=== PATIENT | female | born 1955 | race Caucasian/White ===

== ENCOUNTER → 2017-07-20 | Outpatient (CLI) | payer OTHER | LOC: FIMAGING 10:24 | PROVIDERS: ATTEND Family Medicine | DX: Z12.31 Encounter for screening mammogram for malignant neoplasm of breast (principal) | CPT/HCPCS: G0202 ==

== ENCOUNTER → 2018-03-19 | Outpatient (CLI) | payer OTHER ==
[~2018-03-19] MED LIST: IOPAMIDOL (ISOVUE-300) 100 ML BTL ONE
== END ==
LOC: FIMAGING 14:01
PROVIDERS: ATTEND Family Medicine
DX: K57.30 Diverticulosis of large intestine without perforation or abscess without bleeding (principal); M48.061 Spinal stenosis, lumbar region without neurogenic claudication; M46.96 Unspecified inflammatory spondylopathy, lumbar region
CPT/HCPCS: 74177; Q9967

== ENCOUNTER 2018-03-30 06:59 | Inpatient (IN) | payer OTHER ==
--- NOTE | 2018-03-30 07:22 | EDPHY ---
H & P Stated Complaint: abd pain Time Seen by Provider: 03/30/18 07:14 HPI/ROS: Chief Complaint: Abdominal pain, nausea HPI: 62-year-old woman has been having episodes of severe abdominal pain for the last 4 months. Pain got so severe last night that she would come to the emergency department this morning. Some nausea but no vomiting. Pain is in the left lower quadrant. 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 Has also had frequent episodes of sigmoid diverticulitis. She has been seeing her primary care physician for this and had a CT scan a week ago which was unremarkable. She is not having severe symptoms at that time. She has not been taking any medications for this. There are no aggravating or alleviating factors. She also has a history of neurogenic bladder and self caths. Is not having UTI symptoms. No fevers or chills. No chest pain or shortness of breath. Patient did have some firm stool yesterday. Has intermittent loose and firm stools on a regular basis. ROS: 10 point Review of Systems is negative except as noted in the HPI. PMH: Partial colectomy, , diverticulitis, neurogenic bladder Social History: No smoking, no alcohol, no recreational drug use Family History: non-contributory Physical Exam: Gen: Awake, Alert, No Distress HEENT: Nose: no rhinorrhea Eyes: PERRLA, EOMI Mouth: Moist mucosa Neck: Supple, no JVD Chest: nontender, lungs clear to auscultation Heart: S1, S2 normal, no murmur Abd: Soft, patient has significant tenderness in the left lower quadrant with voluntary guarding Back: no CVA tenderness, no midline tenderness Ext: no edema, non-tender Skin: no rash Neuro: CN II-XII intact, Sensation grossly intact, Strength 5/5 in bilateral upper and lower extremities - Personal History Current Tetanus/Diphtheria Vaccine: Yes Current Tetanus Diphtheria and Acellular Pertussis (TDAP): Yes - Medical/Surgical History Hx Asthma: No Hx Chronic Respiratory Disease: No Hx Diabetes: No Hx Cardiac Disease: No Hx Renal Disease: No Hx Cirrhosis: No Hx Alcoholism: Yes Hx HIV/AIDS: No Hx Splenectomy or Spleen Trauma: No Other PMH: diverticulitis/colectomy/neurogenic bladder/hysterectomies, chronic epichondylitis right arm, sleep difficulties, restless leg syndrome, right rib, hx of electro stim implanted then extruded from skin, TMJ, plantar plate dysfunction right foot, - Social History Smoking Status: Current some day smoker Constitutional: Initial Vital Signs Temperature (C) 36.6 C 03/30/18 07:06 Heart Rate 73 03/30/18 07:06 Respiratory Rate 16 03/30/18 07:06 Blood Pressure 104/73 03/30/18 07:06 O2 Sat (%) 99 03/30/18 07:06 O2 Delivery Mode Nasal Cannula O2 (L/minute) 2 Allergies/Adverse Reactions: Metronidazole HCl [From Flagyl] Allergy (Mild, Verified 03/30/18 07:03) Hives contrast Allergy (Uncoded 03/30/18 07:03) Rash Home Medications: Medication Instructions Recorded Diazepam [Valium 5 MG (*)] 5 mg PO HS PRN 11/07/14 Herbals/Supplements -Info Only 1 ea PO DAILY 11/07/14 Multivitamins [Multivitamin (*)] 1 each PO DAILY 11/07/14 [place]-3 Fatty Acids [Fish Oil 1000 1,000 mg PO DAILY 11/07/14 mg (*)] Pentosan Polysulfate Sodium 100 mg PO DAILY 11/07/14 [ELMIRON] oxyCODONE IR [Oxycodone Ir (*)] 5 mg PO DAILY PRN 11/07/14 Elixir 03/30/18 Medical Decision Making - Diagnostics Imaging Results: Imaging Impressions Abdomen CT 03/30/18 07:26 Impression: Worsening diverticulitis. The patient is at risk for colonic obstruction. Results called and discussed with Sai Arias MD, at 03/30/2018 10:15 General information for patients regarding this examination can be found at [email or web address]. If you have questions or comments about this report, please contact me at [phone] (hospital) or [phone] (cell). ED Course/Re-evaluation: Patient is improved after medications. Does not have a significant white count. Given the recommendations of the prior CT scan I am going to repeat a CT scan with oral contrast today. CT scan result noted. Patient has never diverticulitis with intramural sigmoid abscesses luminal narrowing with proximal colon distension with risk of obstruction per Dr. Dunlap. Case discussed with Laz Morales, hospitalist. Will admit to Dr. Chaudhary. I have paged Dr. Kovacs for surgical consultation. Antibiotics have been ordered. Patient is allergic to metronidazole. I have ordered IV Levaquin. Case discussed with Dr. Kovacs, he will consult the patient on the floor. - Data Points Laboratory Results: Laboratory Results 03/30/18 07:20 03/30/18 07:20 03/30/18 03/30/18 03/30/18 07:35 07:20 07:20 WBC 11.43 10^3/uL H 10^3/uL (3.80-9.50) RBC 3.83 10^6/uL L 10^6/uL (4.18-5.33) Hgb 12.7 g/dL g/dL (12.6-16.3) Hct 35.6 % L % (38.0-47.0) MCV 93.0 fL fL (81.5-99.8) MCH 33.2 pg pg (27.9-34.1) MCHC 35.7 g/dL g/dL (32.4-36.7) RDW 13.2 % % (11.5-15.2) Plt Count 283 10^3/uL 10^3/uL (150-400) MPV 9.2 fL fL (8.7-11.7) Neut % (Auto) 70.3 % % (39.3-74.2) Lymph % (Auto) 19.9 % % (15.0-45.0) Johnson % (Auto) 8.5 % % (4.5-13.0) Eos % (Auto) 0.8 % % (0.6-7.6) Baso % (Auto) 0.2 % L % (0.3-1.7) Nucleat RBC Rel Count 0.0 % % (0.0-0.2) Absolute Neuts (auto) 8.04 10^3/uL H 10^3/uL (1.70-6.50) Absolute Lymphs (auto) 2.28 10^3/uL 10^3/uL (1.00-3.00) Absolute Monos (auto) 0.97 10^3/uL H 10^3/uL (0.30-0.80) Absolute Eos (auto) 0.09 10^3/uL 10^3/uL (0.03-0.40) Absolute Basos (auto) 0.02 10^3/uL 10^3/uL (0.02-0.10) Absolute Nucleated RBC 0.00 10^3/uL 10^3/uL (0-0.01) Immature Gran % 0.3 % % (0.0-1.1) Immature Gran # 0.03 10^3/uL 10^3/uL (0.00-0.10) Sodium 135 mEq/L mEq/L (135-145) Potassium 3.8 mEq/L mEq/L (3.5-5.2) Chloride 103 mEq/L mEq/L (97-110) Carbon Dioxide 23 mEq/l mEq/l (22-31) Anion Gap 9 mEq/L mEq/L (8-16) BUN 7 mg/dL mg/dL (7-23) Creatinine 0.5 mg/dL L mg/dL (0.6-1.0) Estimated GFR > 60 Glucose 113 mg/dL H mg/dL (70-100) Calcium 8.7 mg/dL mg/dL (8.5-10.4) Urine Color YELLOW Urine Appearance CLEAR Urine pH 7.0 (5.0-7.5) Ur Specific [place] 1.014 (1.002-1.030) Urine Protein NEGATIVE (NEGATIVE) Urine Ketones NEGATIVE (NEGATIVE) Urine Blood NEGATIVE (NEGATIVE) Urine Nitrate NEGATIVE (NEGATIVE) Urine Bilirubin NEGATIVE (NEGATIVE) Urine Urobilinogen NEGATIVE EU EU (0.2-1.0) Ur Leukocyte Esterase NEGATIVE (NEGATIVE) Urine Glucose NEGATIVE (NEGATIVE) Medications Given: Discontinued Medications Diatrizoate Meglum/Diatrizoate Sod (Gastroview 66-10 Soln) 30 ml PO EDNOW ONE Stop: 03/30/18 07:27 Last Admin: 03/30/18 08:01 Dose: Not Given Diphenhydramine HCl (Benadryl Injection) 50 mg IVP EDNOW ONE Stop: 03/30/18 07:28 Last Admin: 03/30/18 07:34 Dose: 50 mg Diphenhydramine HCl (Benadryl Injection) 25 mg IVP EDNOW ONE Stop: 03/30/18 09:16 Last Admin: 03/30/18 09:19 Dose: 25 mg Hydromorphone HCl (Dilaudid) 0.5 mg IVP EDNOW ONE Stop: 03/30/18 07:25 Last Admin: 03/30/18 07:34 Dose: 0.5 mg Sodium Chloride (Ns) 1,000 mls @ 0 mls/hr IV ONCE ONE; Wide Open PRN Reason: Protocol Stop: 03/30/18 07:25 Last Admin: 03/30/18 07:33 Dose: 1,000 mls Methylprednisolone Sodium Succinate (Solu-Medrol) 125 mg IVP EDNOW ONE Stop: 03/30/18 07:28 Last Admin: 03/30/18 07:34 Dose: 125 mg Ondansetron HCl (Zofran) 4 mg IVP EDNOW ONE Stop: 03/30/18 07:25 Last Admin: 03/30/18 07:34 Dose: 4 mg Departure - Departure Disposition: [facility] Acute Clinical Impression: Diverticulitis Condition: Fair
[2018-03-30] MEDS ORDERED: NS 1,000 ML IV ONE (07:24)
[2018-03-30] MEDS ORDERED: HYDROmorphONE/DILAUDID 1 MG/ML INJ IVP ONE (07:24)
[2018-03-30] MEDS ORDERED: ONDANSETRON 4 MG/2 ML VIAL IVP ONE (07:24)
[2018-03-30] MEDS ORDERED: GASTROVIEW 30 ML UNIT PO ONE (07:26)
[2018-03-30] MEDS ORDERED: methylPREDNISolone SOD SUCC 125 MG/2 ML VIAL IVP ONE (07:27)
[2018-03-30] MEDS ORDERED: HYDROmorphONE/DILAUDID 2 MG/ML INJ ONE ×2 (07:30→10:55)
[2018-03-30 07:33] LABS: PLATELET COUNT 283 10^3/uL (150-400)
[2018-03-30] MEDS ORDERED: IOPAMIDOL (ISOVUE-300) 100 ML BTL ONE (09:08)
[2018-03-30] MEDS ORDERED: HYDROmorphONE/DILAUDID 2 MG/ML INJ IVP ONE (10:57)
--- NOTE | 2018-03-30 11:18 | ASMTCMCOM ---
CM Note CM Note Notes: Pt presented to the Emergency Department with several episodes of severe abdominal pain and nausea. History includes a partial colectomy secondary to a diverticular mass in 1999 and sigmoid diverticulitis. Pt to be admitted for further evaluation and treatment. Pt is and lives with her in [place]. Discharge needs remain unclear at this time. CM will continue to follow. Current Discharge Plan: To be determined Date Signed: 03/30/2018 11:16 AM Electronically Signed By:Nakia Murillo RN
[2018-03-30] MEDS ORDERED: D5W 1/2 NS W/ 20 KCl/L 1,000 ML IV SCH (12:45)
[2018-03-30] MEDS ORDERED: DIAZEPAM 5 MG TAB PO PRN (12:46)
[2018-03-30] MEDS ORDERED: ERTAPENEM 1 GM VIAL IV SCH (13:00)
--- NOTE | 2018-03-30 13:09 | GCON ---
[f rep st] CONSULTATION DATE OF CONSULTATION: 03/30/2018 REASON FOR EVALUATION: Diverticulitis. REQUESTING PHYSICIAN: Dr. Sai Arias HISTORY OF PRESENT ILLNESS: 62-year-old female, well known to me with a longstanding history of recurrent diverticulitis. Significantly, she underwent a laparoscopic partial right colectomy at [facility] in 1999 for a diverticular mass. She has had recurring episodes of acute diverticulitis over the last decade and has been managed with antibiotics in the outpatient setting. She has been treated for symptoms of irritable bowel throughout the years as well. A colonoscopy earlier in the year was reportedly unremarkable for the patient. She presents to the emergency room today with a 4 month history of persistent and progressive waxing and waning left lower quadrant pain. This was managed with 1 round of antibiotics with some improvement. The rest was attempted to be managed with diet control. The patient admits to approximately 4 bowel movements per day. These are often soft. She denies current nausea or vomiting. She denies fevers or chills. She self catheterizes intermittently. She has had a history of recurrent urinary infections. She denies a history of pneumaturia. PAST MEDICAL HISTORY: Diverticulitis. PAST SURGICAL HISTORY: Laparoscopic partial right hemicolectomy, transvaginal hysterectomy, laparoscopic sacrocolpopexy, hemorrhoidectomy, left leg venous ablation. MEDICATIONS: Elmiron, oxycodone p.r.n., Valium p.r.n., p.r.n. ALLERGIES: Flagyl (rash). SOCIAL HISTORY: No significant tobacco. She drinks approximately 1 beverage per day. FAMILY HISTORY: Notable for cardiovascular disease and diabetes. REVIEW OF SYSTEMS: Notable for chronic GI complaints as well as generalized muscle and joint aches and pains. Otherwise, negative 12 point review. PHYSICAL EXAMINATION: VITAL SIGNS: Temperature 36.6, blood pressure 100/60, pulse 66, respirations 16. GENERAL: The patient is alert, appropriate, mildly uncomfortable, moving easily in bed. HEENT: Anicteric. LYMPH NODES: No cervical or supraclavicular lymphadenopathy. HEART: Regular without murmurs. LUNGS: Clear bilaterally. ABDOMEN: Soft, mildly distended. Mild left lower quadrant tenderness without rebound or guarding. Notable firmness present without appreciable mass. Well-healed laparoscopic incisions without hernias. EXTREMITIES: Without edema. SKIN: Without rashes. NEUROLOGIC: Alert and appropriate. LABORATORY DATA: White count 11, hemoglobin 13, platelets 280. Electrolytes within reference range. Urinalysis normal. CT of the abdomen and pelvis images were directly reviewed on PACS and with on- call radiologist. Notable sigmoid diverticulitis with possible small intramural abscesses, notable luminal air narrowing secondary to either a stricture formation or more likely active untreated diverticulitis. Small associated mesenteri edema. No free air. Evidence of a prior colocolonic anastomosis in the right upper quadrant is present with a long trailing proximal blind loop of hepatic flexure. IMPRESSION: Recurrent refractory diverticulitis. RECOMMENDATIONS: The patient has been admitted for pain control and fluid resuscitation. Given her multiple recurrent attacks over the last 10 years, I do feel she would best be served by an elective laparoscopic sigmoid colectomy once her acute episode has been resolved. Would continue IV ABX in hospital and transition to a po course in the outpatient setting. She has no urgent surgical issues at this time. These findings and recommendations were discussed in detail with the patient and family at bedside. Will continue to follow with you. /[id number]/MODL MTDD
[2018-03-30] MEDS ORDERED: ONDANSETRON 4 MG/2 ML VIAL IVP PRN (13:16)
[2018-03-30] MEDS ORDERED: ONDANSETRON DISINTEGRATING 4 MG TAB PO PRN (13:16)
[2018-03-30] MEDS ORDERED: ACETAMINOPHEN 325 MG TAB PO PRN (13:16)
--- NOTE | 2018-03-30 13:44 | GHP ---
[f rep st] HISTORY AND PHYSICAL DATE OF ADMISSION: 03/30/2018 CHIEF COMPLAINT: Abdominal pain. HISTORY OF PRESENT ILLNESS: This is a 62-year-old female with a history of frequent diverticulitis. She has had a history of a partial colectomy due to that. She states, over the last 4 months, she h as been having abdominal pain. When it first started, she did take a course of Cipro which improved it. However, she continued with the pain. She is under a lot of stress over the last several months . Over the last couple of days, the pain had worsened so much that she needed to go to the emergency department. She is having more nausea. She has chills but no fever. She is having soft bowel move ments. REVIEW OF SYSTEMS: A 10-point review of systems was obtained and was negative. PAST MEDICAL HISTORY: 1. Diverticulitis. 2. Neurogenic bladder for which she self-catheterizes. 3. Possible irritable bowel syndrome. PAST SURGICAL HISTORY: 1. Vaginal hysterectomy and bladder surgery. 2. Partial colectomy. SOCIAL HISTORY: Does smoke and drink alcohol regularly. FAMILY HISTORY: Positive for diverticulitis. PHYSICAL EXAM: VITAL SIGNS: Afebrile, blood pressure is 199/62, heart rate is 66, oxygen saturation 92% on room air. GENERAL: The patient is well developed, in no apparent distress. HEENT: Nonicte froilan sclerae. Extraocular movements intact. Moist mucous membranes. NECK: Supple. No thyromegaly. LUNGS: Good effort. Clear to auscultation bilaterally. CARDIOVASCULAR: Regular rate and rhythm. No murmurs, gallops. ABDOMEN: Positive bowel sounds. Soft. Some mild diffuse tenderness. No re bound or guarding. EXTREMITIES: No clubbing, cyanosis, or edema. SKIN: Without rash, dry, intact. NEUROLOGIC: Alert and oriented x3. Moving all 4 extremities equally. PSYCH: Normal affect. LABS: White blood cell count 11, hemoglobin 12. Chemistry is essentially normal. UA negative. CT scan of the abdomen and pelvis shows worsening diverticulitis with somewhat narrow lumen of the colon and intramural abscess. ASSESSMENT: A 62-year-old female presenting with worsening diverticulitis. PLAN: Acute diverticulitis. We will treat with IV Invanz. Surgery has been consulted regarding the abnormalities on CT scan. She did have a CT scan done a couple weeks ago which did not really show any of those issues. She also had a colonoscopy done a year ago which did not reveal any narrowing. The abnormality of the CT scan is suspected to be due to inflammation, and we would expect it to res olve. Will continue on a clear liquid diet, give IV fluids and IV Invanz. /[id number]/MODL
--- NOTE | 2018-03-30 14:07 | PDMN ---
Medical Necessity Medical necessity: C/M review: est. > 2 MN LOS for eval and TX of acute diverticulitis requiring General Surgery consult, ongoing IV Invanz, IV fluids, comorbid history or frequent diverticulitis, partial colectomy, neurogenic bladder for which patient self catheterizes, possible irritable bowel syndrome per H/P.
[2018-03-30] MEDS ORDERED: DICYCLOMINE 10 MG CAP PO SCH (16:00)
[2018-03-30 17:42] VITALS: BP 98/59
[2018-03-30] MEDS ORDERED: KETOROLAC 15 MG/1 ML SDV IVP SCH (18:00)
[2018-03-31] MEDS ORDERED: ENOXAPARIN 40 MG/0.4 ML SYR SC SCH (09:00)
--- NOTE | 2018-03-31 14:04 | GDS ---
[f rep st] DISCHARGE SUMMARY DISCHARGE DIAGNOSES: 1. Acute diverticulitis. 2. History of previous diverticulitis. 3. Anxiety. HISTORY: This is a 62-year-old female who presented with abdominal pain. HOSPITAL COURSE: Patient was diagnosed with diverticulitis. She did have significant inflammation o n her CAT scan with maybe microabscesses, as well as some narrowing on 1 segment of the colon. Surge ry was consulted and felt this was all diverticular changes. She had fairly normal CT scan just abou t a week ago and a normal colonoscopy a year ago. The patient was initially admitted and started on IV antibiotics. However, she was adamant that she wanted to be treated at home, although it was stevie mmended that she have at least 1 or 2 days of IV antibiotics. However, she was nontoxic appearing an d, thus, was not made to sign out against medical advice. She was given a prescription for Augmentin . She is instructed to come back to the hospital if she has worsening abdominal pain. /[id number]/MODL
== END 2018-03-30 18:23 | disposition home or self-care (01) | DRG 392 ==
LOC: F1N 11:24
PROVIDERS: ADMIT Internal Medicine; ATTEND Internal Medicine
DX: K57.32 Diverticulitis of large intestine without perforation or abscess without bleeding (principal); N31.9 Neuromuscular dysfunction of bladder, unspecified; G25.81 Restless legs syndrome; F41.9 Anxiety disorder, unspecified; F17.210 Nicotine dependence, cigarettes, uncomplicated
CPT/HCPCS: 96365; J1170; J1200; J1335; J1956; J2405; J2930; Q9967

== ENCOUNTER → 2018-04-15 | Outpatient (CLI) | payer OTHER | LOC: FIMAGING 14:53 | DX: K57.30 Diverticulosis of large intestine without perforation or abscess without bleeding (principal); K59.00 Constipation, unspecified | CPT/HCPCS: 74177; Q9967 ==

== ENCOUNTER → 2018-04-25 | Outpatient (CLI) | payer OTHER | LOC: FIMAGING 10:56 | DX: K57.30 Diverticulosis of large intestine without perforation or abscess without bleeding (principal); Z90.49 Acquired absence of other specified parts of digestive tract; Z90.710 Acquired absence of both cervix and uterus | CPT/HCPCS: 74177; J1200; Q9967 ==

== ENCOUNTER → 2018-08-05 | Outpatient (CLI) | payer OTHER | LOC: FIMAGING 15:47 | PROVIDERS: ATTEND Family Medicine | DX: Z12.31 Encounter for screening mammogram for malignant neoplasm of breast (principal) ==

== ENCOUNTER 2018-10-12 17:40 | Emergency (ER) | payer OTHER ==
[2018-10-12 17:47] VITALS: BP 100/65
[2018-10-12] MEDS ORDERED: TDAP ADULT 0.5 ML INJ (BOOSTRIX) IM ONE (17:56)
[2018-10-12] MEDS ORDERED: SKIN ADHESIVE (DERMABOND) 1 EACH TP ONE (17:57)
--- NOTE | 2018-10-12 18:02 | EDPHY ---
H & P Time Seen by Provider: 10/12/18 17:50 Smoking Status: Current some day smoker Constitutional: Initial Vital Signs Temperature (C) 36.7 C 10/12/18 17:45 Heart Rate 71 10/12/18 17:45 Respiratory Rate 16 10/12/18 17:45 Blood Pressure 100/65 10/12/18 17:45 O2 Sat (%) 97 10/12/18 17:45 O2 Delivery Mode Room Air Allergies/Adverse Reactions: Metronidazole HCl [From Flagyl] Allergy (Mild, Verified 03/30/18 07:03) Hives contrast Allergy (Uncoded 03/30/18 07:03) Rash Home Medications: Medication Instructions Recorded Herbals/Supplements -Info Only 1 ea PO DAILY 11/07/14 Multivitamins [Multivitamin (*)] 1 each PO DAILY 11/07/14 [place]-3 Fatty Acids [Fish Oil 1000 1,000 mg PO DAILY 11/07/14 mg (*)] Pentosan Polysulfate Sodium 100 mg PO DAILY 11/07/14 [ELMIRON] oxyCODONE IR [Oxycodone Ir (*)] 5 - 10 mg PO DAILY PRN 11/07/14 Amoxicillin/Clavulanate Pot 875 mg PO BID #28 tab 03/30/18 [Augmentin 875 MG TAB (*)] Cholecalciferol Vit D3 [Vitamin D3 1,000 units PO DAILY 03/30/18 (*)] Dextroamphetamine Sulfate 5 mg PO DAILY 03/30/18 [Dexedrine 5 MG (*)] Diazepam [Valium 2 MG (*)] 2 mg PO HS PRN 03/30/18 Pentosan Polysulfate Sodium 200 mg PO HS 03/30/18 [ELMIRON] Phenobarb/Hyoscy/Atropine/Scop 16.2 mg PO QID PRN 03/30/18 [BELLADONNA-PHENOBARBITAL TAB] MDM/Departure - Depart Disposition: Home, Routine, Self-Care Clinical Impression: Finger laceration Condition: Good Instructions: Finger Laceration (ED), Acute Wounds (ED), Skin Adhesive Care (ED ) Additional Instructions: Follow-up with your primary care doctor next week for recheck If symptoms worsen or new symptoms develop return to the emergency room for recheck Referrals: JAVIER BILL [Primary Care Provider] - As per Instructions
== END 2018-10-12 18:12 | disposition home or self-care (01) ==
DX: S61.217A Laceration without foreign body of left little finger without damage to nail, initial encounter (principal); W26.8XXA Contact with other sharp object(s), not elsewhere classified, initial encounter; Y93.G1 Activity, food preparation and clean up; Y92.9 Unspecified place or not applicable; Z23 Encounter for immunization; Y99.9 Unspecified external cause status

== ENCOUNTER → 2018-11-27 | Outpatient (CLI) | payer OTHER ==
[~2018-11-27] MED LIST changes: +IOPAMIDOL (ISOVUE 370) 100 ML BTL IV ONE; -IOPAMIDOL (ISOVUE-300) 100 ML BTL ONE; +methylPREDNISolone SOD SUCC 125 MG/2 ML VIAL ONE
== END ==
LOC: FIMAGING 14:11
DX: K57.32 Diverticulitis of large intestine without perforation or abscess without bleeding (principal)
CPT/HCPCS: 74177; J1200; J2930; Q9967